=== PATIENT | male | born 1950 | race Caucasian/White ===

== ENCOUNTER 2019-04-28 11:38 | Day surgery (SDC) | payer MEDICARE, SELFPAY ==
[2019-04-28] VITALS (7 sets, daily range): BP systolic 129–151; BP diastolic 60–77; PULSE 53–67; RESP 16–18; TEMP 36.1–36.6; O2SAT 95–100; BMI 29.5
[2019-04-28 13:00] LABS: Bedside Glucose 99 mg/dL (70-110)
--- NOTE | 2019-04-28 14:27 | PCM.DC.URO ---
Discharge Diet: Light diet - advance as tolerated Discharge Activity: Return to Normal Activity, May not drive while taking narcotic pain medications. Call your doctor if your incision/area has: Continuous Slow Oozing, Sudden Increased Bleeding, Increased Pain/ Swelling, Increased Redness, Foul Smelling Discharge, Swelling at the incision site Call your doctor if you observe: Fever of 101 or Higher, Uncontrolled pain Suture Line Care: Avoid Pulling/Pushing, Avoid Pinching/Bending Allergies/Adverse Reactions: Allergies No Known Allergies Allergy (Verified 04/26/19 14:04) Medications to take at Discharge Acetaminophen [Tylenol] 500 mg PO TID PRN 04/26/19 Ascorbic Acid [Vitamin C] 500 mg PO DAILY 04/26/19 Aspirin [Aspir 81] 81 mg PO DAILY 04/26/19 Cetirizine HCl [Zyrtec] 10 mg PO QHS 04/26/19 Docusate Sodium [Stool Softener] 100 mg PO QHS PRN 04/26/19 Doxylamine Succinate [Unisom] 25 mg PO QHS 04/26/19 L.acidoph,Paracasei, B.lactis [Probiotic] 1 ea PO QHS 04/26/19 Lisinopril [Zestril] 30 mg PO QHS 04/26/19 Lovastatin [Mevacor] 80 mg PO QHS 04/26/19 Metformin HCl 1,000 mg PO DAILY 04/26/19 Methylsulfonylmethane [MSM] 500 mg PO DAILY 04/26/19 Multivitamin with Minerals [Multiple Vitamin] 1 ea PO DAILY 04/26/19 Naproxen Sodium [Aleve] 220 mg PO BID 04/26/19 Cephalexin [Keflex] 500 mg PO Q8 #15 cap 04/28/19 Hydrocodone/Acetaminophen [[place] 5-325 Tablet] 1 ea PO Q6H PRN PRN 7 Days #20 tab 04/28/19 The following prescriptions were given: Cephalexin [Keflex] 500 mg PO Q8 #15 cap Prescription Printed Hydrocodone/Acetaminophen [[place] 5-325 Tablet] 1 ea PO Q6H PRN PRN 7 Days #20 tab PRN Reason: Pain Prescription Printed Primary Care Physician: Jamal Felix DO [Primary Care Provider] - Test Results: Test results from this visit will be discussed in further detail at your follow-up appointment, if applicable. Please Follow Up With: Fabrice Webb MD When: in 2 weeks, please call to make an appointment.
[2019-04-28] MEDS: Cefazolin 2 GM in 0.9% Normal Saline 100 ML IV (14:31)
[2019-04-28] MEDS: Bupivacaine Mpf 0.5% 30 ML VIAL (14:50)
[2019-04-28] MEDS: Lubricating Jelly 60 GM Tube 30 GM TOPICAL (15:00)
--- NOTE | 2019-04-28 15:23 | PCM.OPRPT ---
Report of Operation Date of Procedure: 04/28/19 Pre-Operative Diagnosis: Phimosis and BPH with obstruction Post-Operative Diagnosis: The same and mild BPH obstructive prostate Surgery/Procedure Performed:: Circumcision and diagnostic cystoscopy Description of Surgical Findings:: 69-year-old male presents the office because he has been having difficulty with urination on examination was found to have a very tight pinpoint phimotic foreskin therefore recommended we did perform a circumcision and then a diagnostic cystoscopy and then we can recommend therapies for his prostate and the cystoscopy. 69-year-old male taken back to the operating room the penis and testicles are shaved prepped and draped in usual sterile fashion made a circumcision differential incision around the foreskin and then did a dorsal slit and then made a circumferential incision around the subcoronal of the glans penis, and then dissected the foreskin off the penis. We then performed a re-anastomosis of the shaft skin to the penis with interrupted stitches all the way around once this was completed then I did a diagnostic cystoscopy the entire length urethra is normal went in with a flexible scope, the entire length urethra is normal bulbar urethra is normal the pendulous urethra was normal sphincter was intact verumontanum was identified he had bilateral hypertrophy no median lobe a little bit of right high riding bladder neck inside the bladder was completely normal some mild trabeculation left the right ureteral orifice was normal trigone was normal no tumors or stones seen within the bladder. Therefore the main findings were some mild obstruction of the prostate really not significant appearing on cystoscopy, very tight foreskin that was removed and circumcision completed. We will try to do medical therapy for his prostate with Flomax see him back in a few weeks for postop check. Type of Anesthesia:: General Drains: none - Admit VTE Documentation VTE Present on Admission: No VTE Mechan Device Prophylaxis: SCD's
[2019-04-28 15:46] LABS: Bedside Glucose 85 mg/dL (70-110)
== END 2019-04-28 17:04 | disposition home or self-care (01) ==
LOC: SDC 11:49 → AC 11:51
PROVIDERS: Family Provider Preventive Medicine Occupational Medicine; PCP Preventive Medicine Occupational Medicine; Referring Provider Urology; Visit Provider Urology
PROC: 0TJB8ZZ Inspection of Bladder, Via Natural or Artificial Opening Endoscopic (ICD-10-PCS; CPT 52000; principal; 2019-04-28 13:00)
DX: N47.1 Phimosis (principal); N40.1 Benign prostatic hyperplasia with lower urinary tract symptoms; N13.8 Other obstructive and reflux uropathy; R35.0 Frequency of micturition; R35.1 Nocturia; R39.12 Poor urinary stream; E11.9 Type 2 diabetes mellitus without complications; I10 Essential (primary) hypertension; E78.00 Pure hypercholesterolemia, unspecified; Z79.84 Long term (current) use of oral hypoglycemic drugs; Z79.82 Long term (current) use of aspirin; Z79.1 Long term (current) use of non-steroidal anti-inflammatories (NSAID); Z79.899 Other long term (current) drug therapy; Z85.828 Personal history of other malignant neoplasm of skin
CPT/HCPCS: 00920; 54161; 82962; J7120; J2405